=== PATIENT | male | born 1945 | race Caucasian/White ===

== ENCOUNTER 2018-03-13 11:07 | Emergency (ER) | payer MEDICARE ==
[2018-03-13] MEDS ORDERED: OXYCODONE-ACETAMINOPHEN 5-325 MG TABLET PO ONE (11:39)
--- NOTE | 2018-03-13 11:44 | ER Document Report ---
ED GI/ - General Chief Complaint: Flank Pain Stated Complaint: LOWER BACK PAIN Time Seen by Provider: 03/13/18 11:38 Notes: Patient is a 72-year-old male with past medical history as recorded including a left hip replacement 4 years ago and a right hip replacement this past July who presents today stating around 4 days ago he started to have some increased pain in his back, especially the right lower back. He states around 1 week ago he had some pain radiating down his left leg but this resolved. He states he has had some chills at night. He did have 1 day of dysuria around 5 days ago but this resolved. Temperature maximum at home is 99.7. Patient denies any radiation to his testicles, testicular pain, or abdominal pain. He denies any incontinence or weakness or numbness of his legs. He does state at times that his legs "lock up". Patient did not have a bowel movement for 6 days but had a normal bowel movement without blood this morning. Patient during this time course is also had an intermittent frontal headache without blurry vision, neck pain, rash, weakness or numbness to the extremities. He denies any head or back trauma. Patient went to the primary care physician/urgent care's office today and he was sent here for renal colic CT scan to evaluate the possibility of pyelonephritis and/or an infected kidney stone. They found the patient to have hematuria. TRAVEL OUTSIDE OF THE [place] IN LAST 30 DAYS: No - HPI Patient complains to provider of: Other - See above Onset: Other - See above Timing/Duration: Gradual Quality of pain: Achy Severity at maximum: Moderate Severity in ED: Mild Pain Level: 2 Location: Other - See above Sexual history: Inactive Associated symptoms: Other - See above Exacerbated by: Denies Relieved by: Denies - Related Data Allergies/Adverse Reactions: No Known Allergies Allergy (Unverified 03/13/18 12:42) Past Medical History - Social History Smoking Status: Unknown if Ever Smoked Family History: Reviewed & Not Pertinent Review of Systems - Review of Systems Constitutional: denies: Fever EENT: denies: Eye discharge, Nose discharge Cardiovascular: denies: Chest pain, Palpitations Respiratory: denies: Short of breath Gastrointestinal: denies: Vomiting Genitourinary: Dysuria, Flank pain Musculoskeletal: denies: Leg swelling Skin: Other - no hives. denies: Rash Neurological/Psychological: Other - no slurred speech -: Yes All other systems reviewed and negative Physical Exam - Vital signs Notes: Reviewed vital signs and nursing note as charted by RN. CONSTITUTIONAL: Alert and oriented and responds appropriately to questions. Well-appearing; well-nourished HEAD: Normocephalic; atraumatic EYES: PERRL; Conjunctivae clear, sclerae non-icteric ENT: Normal nose; no rhinorrhea; moist mucous membranes; pharynx without lesions noted NECK: Supple without meningismus; non-tender; no cervical lymphadenopathy, no masses CARD: Regular rate and rhythm; no murmurs; symmetric distal pulses RESP: Normal chest excursion without splinting or tachypnea; breath sounds clear and equal bilaterally; no wheezes, no rhonchi, no rales ABD/GI: Normal bowel sounds; non-distended; soft, non-tender; no palpable organomegaly, abdominal bruits or masses GI/: Patient has no testicular pain or swelling. No inguinal erythema or induration. Rectal examination shows no perirectal lesions with a nontender nonswollen prostate BACK: The back appears normal and is non-tender to palpation along the midline spine with no swelling, erythema, or induration. Patient does have some mild CVA tenderness to the right flank EXT: Normal ROM in all joints; non-tender to palpation; no edema SKIN: No acute lesions noted NEURO: CN 2-12 intact; 5/5 bilateral upper and lower extremity strength with sensation intact to light touch PSYCH: The patient's mood and manner are appropriate. Grooming and personal hygiene are appropriate. Course - Re-evaluation Re-evalutation: 03/13/18 11:43 Given the history and physical examination I will order basic labs, blood culture, urine analysis, renal colic CT scan, and basic electrolytes. Patient has no focal neurological deficits and no temperature greater than 99.7. I do believe acute bacterial meningitis and influenza to be extremely unlikely. Given the lack of any induration, fluctuance, or erythema to the midline spine, I do believe discitis or epidural abscess to be unlikely. 03/13/18 12:43 White blood cell count as recorded. Patient's pain is improved. 03/13/18 13:42 Labs, CT scan, and creatinine as recorded. We will send a urine culture and provide a gram of Rocephin. 03/13/18 13:56 Labs and vital signs as recorded. No tenderness on repeat examination of the abdomen. I will start the patient with a gram of Rocephin, send a urine culture, and and the patient follow-up with the primary care physician and urologist. - Laboratory Result Diagrams: 03/13/18 12:23 03/13/18 12:23 Laboratory results interpreted by me: 03/13/18 03/13/18 03/13/18 12:23 12:23 12:38 WBC 12.9 H Seg Neutrophils % 87.0 H Lymphocytes % 6.7 L Absolute Neutrophils 11.3 H Sodium 135.4 L BUN 24 H Urine Protein 100 H Urine Ketones TRACE H Urine Blood MODERATE H Urine Nitrite POSITIVE H Urine Urobilinogen 4.0 H Ur Leukocyte Esterase LARGE H Discharge - Discharge Clinical Impression: Urinary tract infection Qualifiers: Urinary tract infection type: site unspecified Hematuria presence: with hematuria Qualified Code(s): N39.0 - Urinary tract infection, site not specified; R31.9 - Hematuria, unspecified Condition: Good Disposition: HOME, SELF-CARE Additional Instructions: Come back immediately with any vomiting, fevers, worsening abdominal or back pain, or any other acute problems. Please follow-up with the primary care physician and urologist as we have discussed regarding the urine culture and reassessment. Prescriptions: Cephalexin Monohydrate [Keflex 500 mg Capsule] 500 mg PO Q6H 10 Days #40 capsule Referrals: SERGIO BURNETTE PA-C [Primary Care Provider] - Follow up as needed TOMASA PHAN MD [NO LOCAL MD] - Follow up as needed
--- NOTE | 2018-03-13 12:13 | RADIOLOGY REPORT (SQ) ---
EXAM DESCRIPTION: CT LTD RENAL STONE PROTOCOL ON COMPLETED DATE/TIME: 03/13/2018 11:54 am REASON FOR STUDY: Right flank pain and low back pain COMPARISON: None. TECHNIQUE: CT scan of the abdomen and pelvis performed without intravenous or oral contrast. Images reviewed with lung, soft tissue, and bone windows. Reconstructed coronal and sagittal MPR images revi ewed. All images stored on PACS. All CT scanners at this facility use dose modulation, iterative reconstruction, and/or weight based d osing when appropriate to reduce radiation dose to as low as reasonably achievable (ALARA). [facility]: Dose Right [facility]: CareDose [facility]: Dose Right [facility]: Teradose 4D [facility]: Smart [employer] RADIATION DOSE: CT Rad equipment meets quality standard of care and radiation dose reduction techniq ues were employed. CTDIvol: 7.8 mGy. DLP: 452 mGy-cm.mGy. LIMITATIONS: None. FINDINGS: LOWER CHEST: Bilateral calcified pleural plaques and mild interstitial changes. No consol idation or pleural effusion. NON-CONTRASTED LIVER, SPLEEN, ADRENALS: Evaluation limited by lack of IV contrast. No identified sign ificant masses. PANCREAS: No masses. No peripancreatic inflammatory changes. GALLBLADDER: No calcified stones. No inflammatory changes to suggest cholecystitis. RIGHT KIDNEY AND URETER: No cysts identified. No solid masses. No calcified stones. No hydronephrosis or hydroureter. LEFT KIDNEY AND URETER: No cysts identified. No solid masses. No calcified stones. No hydronephrosis or hydroureter. AORTA AND RETROPERITONEUM: No aneurysm. No retroperitoneal masses or adenopathy. BOWEL AND PERITONEAL CAVITY: No obvious masses or inflammatory changes. No free fluid. APPENDIX: Normal. PELVIS, BLADDER, AND ABDOMINAL WALL:No abnormal masses. No free fluid. Unremarkable bladder. BONES: No acute findings. Bilateral total hip arthroplasty hardware appears stable. OTHER: No other significant finding. IMPRESSION: NO ACUTE FINDINGS. TECHNICAL DOCUMENTATION: JOB ID: [id number] [place]-[id number] Quality ID # [id number]: Final reports with documentation of one or more dose reduction techniques (e.g., Au tomated exposure control, adjustment of the mA and/or kV according to patient size, use of iterative reconstruction technique) 2010 [employer]- All Rights Reserved Reading location - IP/workstation name: [email or web address]
[2018-03-13 12:39] LABS: ABSOLUTE LYMPHOCYTES (AUTO) 0.9 10^3/uL (0.5-4.7); ABSOLUTE MONOCYTES (AUTO) 0.8 10^3/uL (0.1-1.4); ABSOLUTE NEUT (AUTO) 11.3 10^3/uL (1.7-8.2); BASOPHILS % (AUTO) 0.2 % (0-2); EOSINOPHILS % (AUTO) 0.1 % (0-6); HEMATOCRIT 43.1 % (37.9-51.0); HEMOGLOBIN 14.7 g/dL (13.5-17.0); LYMPHOCYTES % (AUTO) 6.7 % (13-45); MEAN CORPUSCULAR HEMOGLOBIN 31.3 pg (27.0-33.4); MEAN CORPUSCULAR HGB CONC 34.2 g/dL (32.0-36.0); MEAN CORPUSCULAR VOLUME 92 fl (80-97); PLATELET COUNT 254 10^3/uL (150-450); RED BLOOD COUNT 4.69 10^6/uL (4.35-5.55); TOTAL CELLS COUNTED % (AUTO) 100 %; WHITE BLOOD COUNT 12.9 10^3/uL (4.0-10.5)
[2018-03-13 12:48] LABS: ANION GAP 11 (5-19); BLOOD UREA NITROGEN 24 mg/dL (7-20); CARBON DIOXIDE 26 mmol/L (22-30); CHLORIDE 98 mmol/L (98-107); GLUCOSE 109 mg/dL (75-110); POTASSIUM 3.9 mmol/L (3.6-5.0); SODIUM 135.4 mmol/L (137-145)
[2018-03-13 13:31] LABS: APPEARANCE,URINE CLOUDY; BILIRUBIN,URINE NEGATIVE (NEGATIVE); COLOR,URINE AMBER; GLUCOSE, URINE NEGATIVE (NEGATIVE); KETONES,URINE TRACE mg/dL (NEGATIVE); LEUKOCYTE ESTERASE,URINE LARGE (NEGATIVE); NITRITE,URINE POSITIVE (NEGATIVE); PROTEIN,URINE 100 mg/dL (NEGATIVE)
[2018-03-13] MEDS ORDERED: CEFTRIAXONE 1 GM/D5W RTU 1 GM/50 ML RTUPB IV ONE (13:41)
[2018-03-13 14:45] VITALS: BP 112/46
== END 2018-03-13 14:45 | disposition home or self-care (01) ==
LOC: ER 11:07
DX: N39.0 Urinary tract infection, site not specified (principal); R10.9 Unspecified abdominal pain; M54.5 Low back pain; Z96.642 Presence of left artificial hip joint
CPT/HCPCS: 36415; 87040; 87086; 85025; 87088; 80048; 81001; 87186; 76380; A9270; J0696; 96365; 99284